=== PATIENT | female | born 1950 | race Caucasian/White ===

== ENCOUNTER → 2016-12-13 | Outpatient (CLI) | payer OTHER ==
[2016-12-13 09:26] LABS: Basophils # (auto) 0.1 uL; Basophils % (auto) 0.8 % (0.0-2.0); Eosinophils # (auto) 0.6 uL; Eosinophils % (auto) 10.5 % (0.0-7.0); Hematocrit 45.3 % (36.0-46.0); Hemoglobin 15.3 g/dL (12.2-16.2); Lymphocytes # (auto) 2.2 uL; Lymphocytes % (auto) 37.2 % (10.0-50.0); Mean Corpuscular Hemoglobin 31.2 pg (28.0-32.0); Mean Corpuscular Hgb Conc. 33.7 g/dL (32.0-36.0); Mean Corpuscular Volume 92.6 fL (80.0-100.0); Mean Platelet Volume 8.3 fL (7.4-10.4); Monocytes # (auto) 0.3 uL; Monocytes % (auto) 5.3 % (0.0-12.0); Neutrophils # (auto) 2.8 uL; Neutrophils % (auto) 46.2 % (37.0-80.0); Platelet Count (auto) 247 10^3/uL (140-450); Red Cell Distribution Width 13.4 % (11.6-16.0)
[2016-12-13 09:58] LABS: Albumin 3.7 g/dL (3.4-5.0); BUN/Creatinine Ratio 18.1; Bilirubin, Total 0.4 mg/dL (0.2-1.0); Calcium 8.1 mg/dL (8.5-10.1); Potassium 4.1 mmol/L (3.5-5.1); Total Protein 7.2 g/dL (6.4-8.2)
== END | disposition home or self-care (01) ==
LOC: LAB 08:37
PROVIDERS: ATTEND Internal Medicine
DX: E11.22 Type 2 diabetes mellitus with diabetic chronic kidney disease (principal); I10 Essential (primary) hypertension
CPT/HCPCS: 36415; 80053; 80061; 82043; 82306; 83036; 84443; 85025

== ENCOUNTER → 2017-07-30 | Outpatient (CLI) | payer OTHER ==
[2017-07-30 09:59] LABS: Albumin 3.4 g/dL (3.4-5.0); BUN/Creatinine Ratio 23.2; Bilirubin, Total 0.4 mg/dL (0.2-1.0); Calcium 7.5 mg/dL (8.5-10.1); Potassium 3.8 mmol/L (3.5-5.1); Total Protein 7.2 g/dL (6.4-8.2)
== END | disposition home or self-care (01) ==
LOC: LAB 08:42
PROVIDERS: ATTEND Internal Medicine
DX: I10 Essential (primary) hypertension (principal); E78.5 Hyperlipidemia, unspecified; E11.22 Type 2 diabetes mellitus with diabetic chronic kidney disease
CPT/HCPCS: 36415; 80053; 82043; 83036

== ENCOUNTER → 2017-11-14 | Outpatient (CLI) | payer OTHER ==
[2017-11-14 14:49] LABS: Albumin 3.6 g/dL (3.4-5.0); BUN/Creatinine Ratio 21.4; Bilirubin, Total 0.3 mg/dL (0.2-1.0); Calcium 8.1 mg/dL (8.5-10.1); Potassium 3.6 mmol/L (3.5-5.1); Total Protein 7.2 g/dL (6.4-8.2)
== END | disposition home or self-care (01) ==
LOC: LAB 13:53
PROVIDERS: ATTEND Internal Medicine
DX: E83.51 Hypocalcemia (principal); R79.89 Other specified abnormal findings of blood chemistry
CPT/HCPCS: 36415; 80053; 82330

== ENCOUNTER → 2018-05-21 | Outpatient (CLI) | payer OTHER ==
[2018-05-21 09:08] LABS: Basophils # (auto) 0.1 uL; Basophils % (auto) 1.2 % (0.0-2.0); Eosinophils # (auto) 0.4 uL; Eosinophils % (auto) 6.2 % (0.0-7.0); Hematocrit 43.9 % (36.0-46.0); Lymphocytes # (auto) 2.4 uL; Lymphocytes % (auto) 40.8 % (10.0-50.0); Mean Corpuscular Hemoglobin 31.8 pg (28.0-32.0); Mean Corpuscular Hgb Conc. 34.2 g/dL (32.0-36.0); Mean Corpuscular Volume 92.8 fL (80.0-100.0); Monocytes # (auto) 0.3 uL; Monocytes % (auto) 5.7 % (0.0-12.0); Neutrophils # (auto) 2.7 uL; Neutrophils % (auto) 46.1 % (37.0-80.0); Nucleated Red Blood Cells % 0.1 %; Platelet Count (auto) 191 10^3/uL (140-450); Red Blood Cells 4.73 10^6/uL (4.0-5.20); Red Cell Distribution Width 14.1 % (11.8-14.3); White Blood Cell 5.8 10^3/uL (4.4-10.8)
[2018-05-21 09:47] LABS: Albumin 3.6 g/dL (3.4-5.0); BUN/Creatinine Ratio 25.4; Bilirubin, Total 0.3 mg/dL (0.2-1.0); Calcium 7.7 mg/dL (8.5-10.1); Potassium 4.2 mmol/L (3.5-5.1); Total Protein 7.1 g/dL (6.4-8.2)
== END | disposition home or self-care (01) ==
LOC: LAB 08:11
PROVIDERS: ATTEND Internal Medicine
DX: Z00.01 Encounter for general adult medical examination with abnormal findings (principal); I10 Essential (primary) hypertension; E78.5 Hyperlipidemia, unspecified; E11.29 Type 2 diabetes mellitus with other diabetic kidney complication
CPT/HCPCS: 36415; 80053; 80061; 82043; 82270; 82306; 83036; 83970; 84443; 85025

== ENCOUNTER → 2018-07-10 | Outpatient (CLI) | payer OTHER ==
[2018-07-10 11:56] LABS: Albumin 3.9 g/dL (3.4-5.0); Calcium 8.3 mg/dL (8.5-10.1)
[2018-07-10 12:00] LABS: Free T3 2.11 pg/mL (2.3-4.2); Free T4 (Free Thyroxine) 0.61 ng/dL (0.89-1.76)
[2018-07-10 12:00] LABS: Bilirubin, Total 0.3 mg/dL (0.2-1.0); Total Protein 7.8 g/dL (6.4-8.2)
== END | disposition home or self-care (01) ==
LOC: LAB 10:34
PROVIDERS: ATTEND Internal Medicine
DX: E03.9 Hypothyroidism, unspecified (principal); E83.51 Hypocalcemia
CPT/HCPCS: 36415; 80053; 84439; 84443; 84481

== ENCOUNTER → 2018-10-23 | Outpatient (CLI) | payer OTHER ==
[2018-10-23 10:37] LABS: Free T4 (Free Thyroxine) 0.52 ng/dL (0.89-1.76); T3 Total 0.78 ng/mL (0.60-1.81)
== END | disposition home or self-care (01) ==
LOC: LAB 08:26
PROVIDERS: ATTEND Internal Medicine
DX: E03.9 Hypothyroidism, unspecified (principal)
CPT/HCPCS: 36415; 84439; 84478; 84480

== ENCOUNTER → 2018-12-12 | Outpatient (CLI) | payer OTHER ==
[2018-12-12 13:06] LABS: Albumin 3.7 g/dL (3.4-5.0); BUN/Creatinine Ratio 20.6; Calcium 7.7 mg/dL (8.5-10.1); Potassium 4.2 mmol/L (3.5-5.1)
[2018-12-12 13:09] LABS: Bilirubin, Total 0.3 mg/dL (0.2-1.0); Total Protein 7.3 g/dL (6.4-8.2)
[2018-12-12 13:33] LABS: Free T4 (Free Thyroxine) 0.68 ng/dL (0.89-1.76); T3 Total 0.95 ng/mL (0.60-1.81)
== END | disposition home or self-care (01) ==
LOC: LAB 12:02
PROVIDERS: ATTEND Internal Medicine
DX: E11.22 Type 2 diabetes mellitus with diabetic chronic kidney disease (principal); E78.5 Hyperlipidemia, unspecified; I10 Essential (primary) hypertension; N18.9 Chronic kidney disease, unspecified
CPT/HCPCS: 36415; 80053; 82306; 83036; 84439; 84443; 84480

== ENCOUNTER → 2019-08-01 | Outpatient (CLI) | payer OTHER ==
[2019-08-01 09:39] LABS: Basophils # (auto) 0 uL; Basophils % (auto) 0.9 % (0.0-2.0); Eosinophils # (auto) 0.2 uL; Eosinophils % (auto) 4.2 % (0.0-7.0); Hematocrit 44.5 % (36.0-46.0); Hemoglobin 15.2 g/dL (12.2-16.2); Lymphocytes % (auto) 41.9 % (10.0-50.0); Mean Corpuscular Hemoglobin 31.7 pg (28.0-32.0); Mean Corpuscular Hgb Conc. 34.2 g/dL (32.0-36.0); Mean Corpuscular Volume 92.7 fL (80.0-100.0); Monocytes # (auto) 0.3 uL; Monocytes % (auto) 6.6 % (0.0-12.0); Neutrophils # (auto) 2.2 uL; Neutrophils % (auto) 46.4 % (37.0-80.0); Platelet Count (auto) 189 10^3/uL (140-450); Red Cell Distribution Width 13.1 % (11.8-14.3); White Blood Cell 4.7 10^3/uL (4.4-10.8)
[2019-08-01 10:03] LABS: Albumin 3.7 g/dL (3.4-5.0); Calcium 7.4 mg/dL (8.5-10.1); Potassium 4.1 mmol/L (3.5-5.1)
[2019-08-01 10:08] LABS: BUN/Creatinine Ratio 22.8; Bilirubin, Total 0.4 mg/dL (0.2-1.0); Total Protein 7.3 g/dL (6.4-8.2)
[2019-08-01 11:04] LABS: Free T3 2.57 pg/mL (2.3-4.2); Free T4 (Free Thyroxine) 0.69 ng/dL (0.89-1.76)
== END | disposition home or self-care (01) ==
LOC: LAB 09:09
PROVIDERS: ATTEND Internal Medicine
DX: Z00.00 Encounter for general adult medical examination without abnormal findings (principal); Z12.11 Encounter for screening for malignant neoplasm of colon; I10 Essential (primary) hypertension; E78.5 Hyperlipidemia, unspecified; E11.22 Type 2 diabetes mellitus with diabetic chronic kidney disease; N18.9 Chronic kidney disease, unspecified
CPT/HCPCS: 36415; 80053; 80061; 82043; 82306; 83036; 83970; 84439; 84443; 84481; 85025

== ENCOUNTER → 2020-03-18 | Outpatient (CLI) | payer OTHER ==
[2020-03-18 09:06] LABS: Basophils # (auto) 0.1 10 ^3/uL (0-0.2); Basophils % (auto) 1.2 % (0.0-2.0); Eosinophils # (auto) 0.2 10 ^3/uL (0-0.8); Eosinophils % (auto) 4.4 % (0.0-7.0); Hematocrit 44.5 % (36.0-46.0); Lymphocytes # (auto) 2.2 10 ^3/uL (0.4-5.4); Lymphocytes % (auto) 43.2 % (10.0-50.0); Mean Corpuscular Hemoglobin 31.5 pg (28.0-32.0); Mean Corpuscular Hgb Conc. 33.8 g/dL (32.0-36.0); Mean Corpuscular Volume 93.1 fL (80.0-100.0); Monocytes # (auto) 0.3 10 ^3/uL (0-1.3); Monocytes % (auto) 6.6 % (0.0-12.0); Neutrophils # (auto) 2.2 10 ^3/uL (1.6-8.6); Neutrophils % (auto) 44.6 % (37.0-80.0); Platelet Count (auto) 210 10^3/uL (140-450); Red Blood Cells 4.77 10^6/uL (4.0-5.20); Red Cell Distribution Width 13.4 % (11.8-14.3)
[2020-03-18 09:40] LABS: Free T3 2.9 pg/mL (2.3-4.2); Free T4 (Free Thyroxine) 0.98 ng/dL (0.89-1.76)
[2020-03-18 09:43] LABS: Albumin 3.7 g/dL (3.4-5.0); BUN/Creatinine Ratio 28.2; Bilirubin, Total 0.5 mg/dL (0.2-1.0); Calcium 8.1 mg/dL (8.5-10.1); Total Protein 7.2 g/dL (6.4-8.2)
== END | disposition home or self-care (01) ==
LOC: LAB 08:43
PROVIDERS: ATTEND Internal Medicine
DX: Z12.11 Encounter for screening for malignant neoplasm of colon (principal); E11.42 Type 2 diabetes mellitus with diabetic polyneuropathy; I10 Essential (primary) hypertension
CPT/HCPCS: 36415; 80053; 80061; 82043; 82306; 83036; 84439; 84443; 84481; 85025

== ENCOUNTER → 2020-03-22 | Outpatient (CLI) | payer OTHER | END | disposition home or self-care (01) | LOC: LAB 08:33 | PROVIDERS: ATTEND Internal Medicine | DX: Z12.11 Encounter for screening for malignant neoplasm of colon (principal); Z00.00 Encounter for general adult medical examination without abnormal findings; E11.42 Type 2 diabetes mellitus with diabetic polyneuropathy; E03.9 Hypothyroidism, unspecified | CPT/HCPCS: 82274 ==